=== PATIENT | male | born 1965 | race Caucasian/White ===

== ENCOUNTER 2021-04-16 09:02 | Outpatient (CLI) | payer BC, SELFPAY ==
--- NOTE | 2021-04-16 09:31 | ECG_ITS ---
[facility] Test Date: 2021-04-16 Pat Name: Raymundo Fernandez Department: Room: Gender: Male Line Manager: Sherita Araya : 1965 Requested By: Nancy Stoddard Order Number: [id number] Jayashree MD: Nancy Stoddard M.D. Interpretive Statements NAME OF STUDY: EXERCISE SESTAMIBI STRESS TEST INDICATION: Chest Pain Baseline blood pressure of 133/73 mm Hg, heart rate of 86 beats per minute and oxygen saturation of 91%. EKG showed normal sinus rhythm, normal axis with poor anterior R wave progression. Nonspecific ST depression. The patient exercised for 5 minutes and 12 seconds on a standard Rocael protocol. Patient attained a maximum heart rate of 142 beats per minute(87% of the maximum predicted heart rate) with a blood pressure at the peak exercise of 196/61 mm Hg and oxygen saturation 93%. The EKG at the peak exercise revealed sinus tachycardia with intermittent PVCs. 2 mm horizontal to upsloping ST depression in inferolateral leads (lead II, III, aVF, V5 and V6). Patient did not have any chest pain with the exercise. During the recovery phase, there were no new changes. Intermittent PVCs PVC couplets and PVC triplet noted throughout the study. Blood pressure at the end of the recovery phase was 159/73 mm Hg with a heart rate of 91 beats per minute and oxygen saturation of 98%. CONCLUSION: 1. Positive EKG response to treadmill exercise. Horizontal to upsloping [address] depression noted in inferolateral leads. 2. No exercise-induced chest pain. Intermittent PVCs PVC couplets and one 3 beats long run of PVC triplet noticed during exercise and in recovery. 3. Decreased for age exercise tolerance, attained a maximum of 7 METs. Maximum VO2 of 24.5 mL/kg/min. 4. Baseline normal blood pressure with normal response to exercise. 5. Perfusion scan will be documented separately. Electronically Signed On 04-20-2021 11:40:19 CDT by Nancy Stoddard M.D. [email or web address]
[2021-04-16 09:32] VITALS: BMI 27.8
--- NOTE | 2021-04-16 09:32 | NMCV_ITS ---
NM zev perf SPECT r/s* [id number] Raymundo Fernandez Age: 56 Gender: M : 1965 Exam Date: 04/16/2021 09:32 Ordering Phys: Nancy Stoddard MD ([email or web address]) Technologist: DEMARIO Padilla Exam Location: [facility] Indications: SOB STRESS TEST Please see separate stress test report in [facility] for full findings IMAGE PROTOCOL Rest/Stress 1 Exercise Day Radiopharmaceutical Dose (mCi) Administration Site Administered by Rest: Tc-99m 10.9 IV DEMARIO Bergeron Sestamibi Stress:Tc-99m 33.0 IV DEMARIO Padilla Sestamifang Rest: 16-Apr-2021 60 Discovery 630 Stress: 16-Apr-2021 15 Discovery 630 Radiopharmaceutical was injected at 85 % maximum heart rate. Images obtained in supine and prone position. SPECT RESULTS Technical Quality: Good Raw Data Analysis: Normal Image Corrections: No attenuation or motion correction applied Summed Stress Score: 3 Summed Rest Score: 2 Summed Difference Score: 3 PERFUSION FINDINGS Small sized partially reversible perfusion abnormality of mid to apical inferior , apical septal and apical hugo on stress images. FUNCTIONAL RESULTS (calculated via Gated SPECT) Stress Image LV EF (%): 50 Stress EDV (mL):66 TID: 1.13 Stress ESV (mL):33 FUNCTIONAL FINDINGS: The left ventricle is normal in size. Transient Ischemia Dilatation of 1.1. The left ventricular ejection fraction is mildly reduced with a value of 50%. No regional wall motion abnormality. Normal end diastolic and end systolic volumes. IMPRESSIONS 1. Small sized partially reversible perfusion abnormality of mid to apical inferior , apical septal and apical hugo. 2. This likely represents small area of ischemia in left anterior descending/right coronary artery territory. 3. The left ventricular ejection fraction is mildly reduced with a value of 50%. 4. No regional wall motion abnormality. 5. EKG portion of the study will be reported separately. Nancy Stoddard MD (Electronically Signed) Final Date: 20 April 2021 21:03 S
[2021-04-16 11:01] VITALS: BP 180/60; PULSE 100
== END 2021-04-16 09:03 | disposition home or self-care (01) ==
LOC: CDL 09:05
PROVIDERS: Family Provider General Practice; PCP Family Medicine; Visit Provider Internal Medicine Cardiovascular Disease
DX: R07.9 Chest pain, unspecified (principal); R06.02 Shortness of breath
CPT/HCPCS: 78452; 93017; A9500

== ENCOUNTER → 2021-08-02 08:54 | Outpatient (BNVA) | payer BC, SELFPAY | PROVIDERS: Family Provider General Practice; PCP Family Medicine; Referring Provider Internal Medicine Cardiovascular Disease; Visit Provider Internal Medicine Cardiovascular Disease | DX: R94.39 Abnormal result of other cardiovascular function study (principal); R06.00 Dyspnea, unspecified; I10 Essential (primary) hypertension; Z20.822 Contact with and (suspected) exposure to COVID-19; Z79.899 Other long term (current) drug therapy | CPT/HCPCS: 80048; 85025; 85610; 87635 ==

== ENCOUNTER 2021-08-05 10:30 | Observation (INO) | payer BC, SELFPAY ==
[2021-08-05] VITALS (29 sets, daily range): BP systolic 109–152; BP diastolic 61–99; PULSE 68–83; RESP 1–25; TEMP 36.8; O2SAT 95–98; BMI 30.8
--- NOTE | 2021-08-05 09:00 | XACV_ITS ---
Ht: 188 cm Wt: 111 kg BSA: 2.43 m2 Gender: Male : 1965 Any Known Allergies: No known allergies Exam Priority: Routine Procedure(s): Procedure Description: Diagnostic procedure Procedure Description: Left Heart Catheterization Procedure Description: Left ventriculography Procedure Description: Coronary Angiography Diagnostic Cath Status: Elective Diagnostic Findings * INDICATION: Significant dyspnea on exertion/abnormal stress test. * No significant disease noted in the Left Main, Left Anterior Descending, Right, or Circumflex coronary arteries. * There are 2 very high OM branches (almost ramus arteries), Superior branch has a significant 70% stenosis. Inferior branch has moderate 50-60% ostial stenosis. * Coronary angiography shows right dominance. Conclusions 1. No significant disease noted in the Left Main, Left Anterior Descending, Right, or Circumflex coronary arteries. 2. Patient has a very high OM branches. Superior branch has ostial 70% stenosis. Medical therapy for now. If in future he develops chest pain, can consider revascularization/ FFR. Stress test defect did not correlate with the lesion.. Recommendations * Aggressive risk factor modification. * Outpatient cardiology follow up in 4 weeks. * High intensity statin therapy. Interventional RX Recommendation: medical therapy and/or counseling Diagnostic RX Recommendation: medical therapy and/or counseling Pressures Phase:Rest AO : 92 / 57 ( 68 ) @ 10:03:00 AM 96 / 57 ( 74 ) @ 10:23:00 AM 117 / 63 ( 85 ) @ 10:33:00 AM 119 / 64 ( 86 ) @ 10:33:00 AM LV : 119 / -10 / 8 @ 10:33:00 AM 120 / -9 / 8 @ 10:33:00 AM Valves Phase:DefaultPhase AV : 3.0 @ 12:02:37 PM AV Mean Gradient: 14.0 @ 12:02:37 PM Clinical Evaluation EBL: 5mL-10mL Procedural Details Pre-Procedure Time Out. Identified patient by full name and date of as verbalized by the patient/guarantor. Does the consent match the physician's order: Yes. Accurate & Complete Informed Consent: Yes. Inpatient/Outpatient History & Physical on Chart: Yes. If H&P is completed, is and addenduem needed: No; If yes, is the addendum complete: N/A. Visualize and Verify Site with Patient/Guarantor: N/A. Relevant Radiology Images available: N/A. Pre-op teaching completed and patient verbalized understanding. The risks, benefits, and alternatives of sedation and/or procedure were discussed by physician. The patient agrees to continue. Procedure started. [facility] Clinical Fraility Score: 2: Well. Cello Teacher Indications: Suspected CAD. Chest Pain Symptom Assessment: Atypical Angina. Correct patient, site and procedure confirmed by cath team. PERRLA. Strong, equal hand trade facilitator bilaterally. Lungs clear x 5 lobes. IV Site on Arrival: 18 gauge in the right anticubital. IV Fluids: 0.9% NaCl at KVO. 0 mL infused prior to cath lab technologist. Pre Procedural Pulses: bilateral dorsalis pedis was 3+. Pre Procedural Pulses: bilateral posterior tibial was 3+. Pre Procedural Pulses: bilateral radial was 3+. Oxygen started at 2liters/min via nasal canula. right groin was prepped with chloroprep then draped in the usual sterile fashion. right radial was prepped with chloroprep then draped in the usual sterile fashion. Cardiac Cath Pack. ACIST Manifold Kit Model BT 2000. Heparinized Saline (2 units/mL), 1000 mL bag. Physician arrived. Physician scrubbed in. Immediate Pre-Procedure Time Out. Correct Patient: Yes; Correct Procedure: Yes; Correct Site: Yes; Correct Patient Position: Yes; Correct Supplies: Yes; Dried Flammable Prep: Yes; Blood Products Available: N/A;. Lidocaine 1% infiltrated to the right radial. Arterial access obtained. Equipment: 6F - Radial. A TR 6FR Radial TIG 4.0 110cm was advanced over the wire and used for Left coronary angiography. Catheter removed over the exchange wire. A 5 stateless JL3.5 catheter in over wire. Catheter removed over the exchange wire. A 5 stateless JR4 catheter in over wire. Multiple views taken of right coronary artery. Catheter removed over the exchange wire. A 5 stateless JL4 catheter in over wire. Catheter removed over the exchange wire. Lidocaine 1% infiltrated to the right groin. Arterial access obtained with micropuncture set. A 5 stateless JL4 catheter in over wire. Multiple views taken of left coronary artery. Catheter removed over the standard wire. A CRD 6F 145 degree Pigtail 110cm Diagnostic Catheter was advanced over the wire and used for Ventriculography. EDP Sample taken: LV 119/-11,8; HR: 76 BPM; SpO2: 97%. Pullback taken: LV 120/-10,8; AO 117/63(85); Mean: 14mmHg, Peak to Peak: 3mmHg, SEP: 18sec/min; HR: 76 BPM; SpO2: 97%. Catheter removed over the standard wire. ACT drawn. Results 147 seconds. Therapeutic limits - pre-heparin administration 90-150 seconds and monitoring heparin during a vascular procedure >250 seconds. A TR Band was successful obtaining hemostatsis at the Right Radial artery insertion site. TR band placed. Hemostasis obtained. PERRLA. Strong, equal hand trade facilitator bilaterally. No VTE prophylaxis required. Medication's Wasted: Lidocaine 1% = 15 mL. Medication's Wasted: Nitro = 49.8 mg. Medication's Wasted: Heparin = 1000units. Total IV fluids: 50 mL. Contrast type used: Omnipaque 300 mgI/mL, 500 mL bottle. Post-op diagnosis: moderate OM 1 stenosis. Complications: none. Estimated blood loss: 5mL-10mL. A Manual Compression was successful obtaining hemostatsis at the Right Femoral artery insertion site. Sheath(s) removed and manual pressure held until hemostasis was achieved. Sterile 4x4 and Op-site applied to the puncture site. No oozing or hematoma noted. Post sheath removal instructions were given and the patient verbalized understanding. Post Procedure: Pulses reassessed and unchanged. Procedure completed. Patient transferred by bed to 1st floor. Vital chart was stopped. Access Site Site: Right Radial artery Sheath Size: 6 Fr Hemostasis Method: TR Band Hemostasis Success: Successful Site: Right Femoral artery Sheath Size: 6 Fr Hemostasis Method: Manual Compression Hemostasis Success: Successful Procedure Medications Start: 10:56 AM Stop: 10:56 AM Medication: Versed Amount: 1 mg Route: I.V. Start: 10:56 AM Stop: 10:56 AM Medication: Fentanyl Amount: 50 mcg Route: I.V. Start: 11:00 AM Stop: 11:00 AM Medication: Nitrogylcerin Amount: 200 mcg Route: I.A. Start: 11:00 AM Stop: 11:00 AM Medication: Fentanyl Amount: 50 mcg Route: I.V. Start: 11:00 AM Stop: 11:00 AM Medication: Versed Amount: 1 mg Route: I.V. Start: 11:03 AM Stop: 11:03 AM Medication: Heparin Amount: 5000 units Route: I.V. I, the attending physician, have reviewed and verified all procedure medications. Yes, all medications given per verbal order History/Risk Factors Hypertension: Yes Dyslipidemia: Yes Peripheral Arterial Disease (PAD): No Myocardial Infarction (HI): No Obesity: No Renal Disease: No Tobacco Use: Never Prior Interventions PCI: No CABG: No Valve Surgery: No Report Signatures Finalized by Rocky Syed MD on 08/19/2021 05:17 PM
--- NOTE | 2021-08-05 10:30 | P.HP_ITS ---
Same Day Surgery H&P Indication for Procedure/HPI DATE OF PROCEDURE: August 05, 2021 CHIEF COMPLAINT/INDICATIONFOR SURGICAL PROCEDURE: Dypnea on exertion/abnormal stress test PREOP DIAGNOSIS: Dyspnea on exertion/abnormal stress test PLANNED PROCEDRUE: Operation Date: 08/05/21 10:00 Proposed Procedures p Cardiac Catheterization(Left) - Rocky Syed M.D Possible percutaneous coronary intervention 56 yo man with PMHx of hypertension, diabetes, family h/o CAD (Mother with CHF, OR and stroke in her 50's) has been having lightheadedness, dyspnea on exertion and palpitations. His stress test was abnormal and plan is for left and right heart cath ROS CONSTITUTIONAL: No fever or chills. [] EYES: No blurring of vision or other visual disturbances lately. [] ENT: No hoarseness of voice, auditory disturbances or sore throat. [] CARDIOVASCULAR: As mentioned above. [] RESPIRATORY: dyspnea on exertion/ lightheadedness, No significant cough. [] GASTROINTESTINAL: No hematemesis or melena. [] GENITOURINARY: No dysuria or hematuria. [] INTEGUMENTARY: No skin rashes or history of skin cancer. [] NEURO: No transient ischemic attacks or amaurosis. [] PSYCHIATRIC: No history of psychosis or major depression. [] HEMATOLOGIC: No bleeding disorders or significant anemia. [] ENDOCRINE: No history of polyuria or polydipsia. [] MUSCULOSKELETAL: No recent joint pain or swelling. [] ALLERGY/IMMUNOLOGY: As mentioned above. [] Medications/Allergies* Home Medications Medication Instructions Recorded Confirmed Type metformin 1,000 mg tablet 1,000 mg PO BID 03/19/21 History dulaglutide 0.75 mg/0.5 mL mg SUBCUT 05/28/21 History subcutaneous pen injector gabapentin 100 mg capsule 200 mg PO BID cap 05/28/21 History lisinopril 20 1 tab PO DAILY tab 05/28/21 05/28/21 History mg-hydrochlorothiazide 12.5 mg tablet Allergies/Adverse Reactions Allergy/AdvReac Type Severity Reaction Status Date / Time No Known Allergies Allergy Verified 08/04/21 11:47 Pertinent History/Comorbid Conditions* Medical History (Updated 05/29/21 @ 08:47 by Nancy Stoddard MD) Abnormal stress test Diabetes HTN (hypertension) Neuropathy Family History (Updated 03/19/21 @ 09:33 by Anayeli Euceda RN) Diabetes CHF (congestive heart failure) Mother Myocardial infarction Grandfather Stroke Grandfather Social History Smoking and tobacco status: never smoked Alcohol intake: never Pertinent Exam Findings alert, oriented x 3, clear to auscultation bilaterally and regular rate & rhythm Conscious Sedation Assessment PATIENT ASSESSED PRIOR TO SEDATION, WITH NO CHANGE NOTED: Yes AIRWAY EVAL/ANESTHESIA PLAN: normal airway, ASA III, Monitored Anesthesia, Local Anesthesia, Risks, benefits & alternatives of sedation and/or procedure discussed and Patient agrees to continue as planned Recommendations Surgery/Procedure today (Left heart cath with possible percutaneous coronary intervention) Coding Level of Care Code Acute Healthcare Science Specialist for Florentin Ladd
--- NOTE | 2021-08-05 18:20 | PC.NURSE ---
pt received into room 105 from botany laboratory assistant at 1230.report received.no interventions performed.pt is alert and oriented x 4.sr on monitor.denies pain at present.right wrist with tr band on and inflated.right hand is warm to touch and with brisk capilary refill.palpable radial pulse noted distal to tr band.no hematoma noted.instructed in activity restrictions s/p radial artery procedure...and instructed to notify nurse for any bleeding,numbness,pain..or for any concerns at all.pt verb understanding of instructions
--- NOTE | 2021-08-05 19:38 | PC.NURSE ---
tr band slowly deflated and finally removed at 1645.dressed with 2x2 and secured with biocclusive drsg.no hematoma noted right hand remains warm to touch and with brisk capillary refill.instructed in activity restrictions and to notify staff for any bleeding,pain,numbness..or for any concerns at all.pt verb understanding of instructions.pt was on bedrest x 6 hours.got up and ambulated in [place] at 1830.vss.tolerated well.discharge instructions given and explained.pt verb understanding of instructions.discharged ambulatory to exit at 1915.spouse to drive pt home.
--- NOTE | 2021-08-06 13:21 | PC.SOCIAL ---
discharge follow up call, spoke with patient. he reports he is feeling good. no chest pain or sob. patient is aware to hold metformin until 10-17 and to discontinue taking plavix. patient has follow up appointment dates and times. no concerns voiced. advised patient to not lift anymore than 5 lbs x5 days. he reports dressing to incision is clean, dry and free from redness.
== END 2021-08-05 19:15 | disposition home or self-care (01) ==
LOC: CSU 11:38
PROVIDERS: Admitting Provider Internal Medicine; PCP Family Medicine; Visit Provider Internal Medicine
DX: R06.00 Dyspnea, unspecified (principal); R94.39 Abnormal result of other cardiovascular function study; I10 Essential (primary) hypertension; Z82.49 Family history of ischemic heart disease and other diseases of the circulatory system; Z79.84 Long term (current) use of oral hypoglycemic drugs; E11.40 Type 2 diabetes mellitus with diabetic neuropathy, unspecified; Z82.3 Family history of stroke
CPT/HCPCS: 85347; 93452; C1769; C1887; C1894; G0378; J1644; J2250; J3010; J3490; J7030; Q9967

== ENCOUNTER → 2021-08-12 14:53 | Outpatient (BNVA) | payer BC, SELFPAY | PROVIDERS: PCP Family Medicine; Visit Provider Nurse Practitioner Family | DX: I10 Essential (primary) hypertension (principal) | CPT/HCPCS: 80048 ==

== ENCOUNTER → 2021-10-17 17:05 | Outpatient (BNVA) | payer BC, SELFPAY | PROVIDERS: PCP Family Medicine; Visit Provider Family Medicine | DX: U07.1 COVID-19 (principal) | CPT/HCPCS: 87635 ==

== ENCOUNTER → 2022-07-01 07:52 | Outpatient (BNVA) | payer BC, SELFPAY | PROVIDERS: PCP Family Medicine; Visit Provider Family Medicine | DX: E11.9 Type 2 diabetes mellitus without complications (principal); G62.9 Polyneuropathy, unspecified; I10 Essential (primary) hypertension; I25.10 Atherosclerotic heart disease of native coronary artery without angina pectoris | CPT/HCPCS: 80053; 80061; 82607; 83036; 85025 ==

== ENCOUNTER → 2022-09-26 08:40 | Outpatient (BNVA) | payer BC, SELFPAY | PROVIDERS: PCP Family Medicine; Visit Provider Family Medicine | DX: G62.9 Polyneuropathy, unspecified (principal); E11.9 Type 2 diabetes mellitus without complications; I10 Essential (primary) hypertension; R94.39 Abnormal result of other cardiovascular function study | CPT/HCPCS: 80053; 80061; 83036; 84443; 85025 ==